=== PATIENT | male | born 1930 | race Caucasian/White ===

== ENCOUNTER → 2017-05-21 | Outpatient (CLI) | payer OTHER, MEDICARE | LOC: BHFA 14:30 | PROVIDERS: ATTEND Internal Medicine Cardiovascular Disease | DX: Z01.810 Encounter for preprocedural cardiovascular examination (principal); R01.1 Cardiac murmur, unspecified ==

== ENCOUNTER → 2017-06-05 | Outpatient (CLI) | payer OTHER, MEDICARE | LOC: BHFA 09:15 | PROVIDERS: ATTEND Internal Medicine Cardiovascular Disease | DX: R01.1 Cardiac murmur, unspecified (principal) ==

== ENCOUNTER → 2017-12-06 | Outpatient (CLI) | payer OTHER, MEDICARE | LOC: CIMAGING 15:05 | PROVIDERS: ATTEND Family Medicine | DX: M11.261 Other chondrocalcinosis, right knee (principal); M11.262 Other chondrocalcinosis, left knee; I70.90 Unspecified atherosclerosis; I65.21 Occlusion and stenosis of right carotid artery | CPT/HCPCS: 73564-PO; 93880-PO ==

== ENCOUNTER → 2018-04-14 | Outpatient (CLI) | payer OTHER, MEDICARE | LOC: SUPIMAGING 13:28 | PROVIDERS: ATTEND Family Medicine | DX: K59.00 Constipation, unspecified (principal); J90 Pleural effusion, not elsewhere classified; J98.4 Other disorders of lung; D64.9 Anemia, unspecified | CPT/HCPCS: 71046-PN; 74018-PN; 82607-90 ==